=== PATIENT | male | born 1960 | race Caucasian/White ===

== ENCOUNTER → 2018-09-18 | Outpatient (CLI) | payer BC ==
[2018-09-18 11:14] LABS: BASO % 0.6 % (0.0-1.0); EOS # 0.1 10*3/uL (0.0-0.4); HEMATOCRIT 46.2 % (42.0-52.0); HEMOGLOBIN 15.4 g/dl (14.0-18.0); LYMPH # 2.3 10*3/uL (1.3-4.4); LYMPH % 32.9 % (27.0-41.0); MEAN CELL VOLUME 90.6 fl (80.0-94.0); MEAN CORPUSCULAR HGB 30.2 pg (27.0-31.0); MEAN CORPUSCULAR HGB CONC 33.3 g/dl (33.0-37.0); MEAN PLATELET VOLUME 10.7 fl (9.6-12.3); MONO # 0.7 10*3/uL (0.1-1.0); MONO % 10.1 % (3.0-9.0); NEUT # 3.8 10*3/uL (2.3-7.9); NEUT % 54.1 % (47.0-73.0); PLATELET COUNT AUTOMATED 179 10*3/uL (130-400); WHITE BLOOD COUNT 7.1 10*3/uL (4.8-10.8)
[2018-09-18 11:44] LABS: ALBUMIN 4.5 gm/dl (3.1-4.5); ALKALINE PHOSPHATASE 60 U/L (45-117); BUN 14 mg/dl (7-24); CHLORIDE 103 mmol/L (98-107); CHOLESTEROL 192 mg/dL (<200); CREATININE 0.83 mg/dL (0.70-1.30); HDL CHOLESTEROL 48 mg/dl (40-60); LDL CHOLESTEROL 122 mg/dL (9-159); POTASSIUM 4.1 mmol/L (3.5-5.1); SGOT/AST 35 IU/L (3-35); SGPT/ALT 60 U/L (12-78); SODIUM 138 mmol/L (136-145); TOTAL PROTEIN 7.8 gm/dL (6.4-8.2); TRIGLYCERIDES 110 mg/dl (<150); VLDL CHOLESTEROL 22 mg/dL (6-40)
[2018-09-18 12:13] LABS: FREE T4 0.98 ng/dl (0.76-1.46)
== END | disposition home or self-care (01) ==
LOC: RESCLI 09:15
PROVIDERS: Student in an Organized Health Care Education/Training Program
DX: K21.9 Gastro-esophageal reflux disease without esophagitis (principal); E66.3 Overweight; E55.9 Vitamin D deficiency, unspecified; H83.3X3 Noise effects on inner ear, bilateral; R06.2 Wheezing; F17.200 Nicotine dependence, unspecified, uncomplicated; Z71.6 Tobacco abuse counseling; Z76.89 Persons encountering health services in other specified circumstances; Z79.899 Other long term (current) drug therapy; Z91.041 Radiographic dye allergy status

== ENCOUNTER → 2018-10-06 | Outpatient (CLI) | payer BC ==
--- NOTE | ~2018-10-06 | PF ---
[place], [place] PULMONARY FUNCTION TEST NAME: KAROL ARMENDARIZ UNIT #: [id number] ROOM: DOCTOR: FRANCINE PAN MD,SHARONDA BIRTHDATE: [birth year] DOS: 10/06/2018 PULMONARY FUNCTION TEST ORDERED BY: Navdeep Suarez DO HISTORY: The patient is a 58-year-old, outpatient, male, height of 73 inches, weight of 225 pounds, BMI 27. The testing done for assessment of symptoms of wheezing. The patient was noted tobacco use 1 pack of cigarettes per day for 43 years. SPIROMETRY: FEV1 of 4.81 liters, 90% predicted value. The FEV1 3.44 liters, 84% predicted value. Ratio of FEV1/FVC 72% post-bronchodilators. No significant changes were noted. Lung diffusion 90%, normal. Flow volume loop was noted very mild obstructive airway pattern. The patient could not perform the plethysmographic test. FINAL IMPRESSION: Current test noted with finding of normal spirometry and the lung diffusion. Clinical correlation would be advised. SHARONDA ESCAMILLA MD CM:PFREPORT:PULMONARY FUNCTION TEST [id number] SHARONDA PAN MD
== END | disposition home or self-care (01) ==
LOC: CP 08:18
DX: R06.2 Wheezing (principal)

== ENCOUNTER → 2018-10-21 | Outpatient (CLI) | payer BC | END | disposition home or self-care (01) | LOC: RESCLI 02:48 | DX: E03.9 Hypothyroidism, unspecified (principal); K21.9 Gastro-esophageal reflux disease without esophagitis; E55.9 Vitamin D deficiency, unspecified; F17.200 Nicotine dependence, unspecified, uncomplicated; Z79.899 Other long term (current) drug therapy; Z91.041 Radiographic dye allergy status ==

== ENCOUNTER 2020-05-18 08:23 | Emergency (ER) | payer OTHER ==
[~2020-05-18] VITALS: Wt 93.0 kg
== END 2020-05-18 09:50 | disposition home or self-care (01) ==
LOC: ED 08:23
DX: K64.9 Unspecified hemorrhoids (principal)